=== PATIENT | female | born 1940 | race Caucasian/White ===

== ENCOUNTER 2023-01-07 10:48 | Outpatient (CLI) | payer MEDICARE, SELFPAY ==
--- NOTE | ~2023-01-07 | XR_ITS ---
Left Knee Technique: AP, lateral, and sunrise views were obtained. Clinical History: Pain Findings: No fracture or dislocation is seen. There is moderate medial joint line spurring. There is mild lateral joint line and patellofemoral compartment spurring.. Soft tissues are unremarkable. No j oint effusion is seen. 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 Reviewed, dictated and finalized at location M. 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
== END 2023-01-07 10:49 | disposition home or self-care (01) ==
LOC: CHSIMG 10:54
PROVIDERS: PCP Internal Medicine; Visit Provider Internal Medicine
DX: M25.562 Pain in left knee (principal); M17.12 Unilateral primary osteoarthritis, left knee
CPT/HCPCS: 73562

== ENCOUNTER 2024-07-25 12:55 | Emergency (ER) | payer MEDICARE, OTHER, SELFPAY ==
--- NOTE | ~2024-07-25 | XR_ITS ---
EXAMINATION: XR foot RT min 3V DATE: 07/25/2024 13:08 INDICATION: Right heel pain. TECHNIQUE: 4 views of right foot were obtained. COMPARISON: None. FINDINGS: Alignment is normal. No fracture. There is severe osteoarthritis of first metatarsophalange al joint and mild osteoarthritis of some of the interphalangeal joints. There is an enthesophyte of p osterior aspect of calcaneal tuberosity. IMPRESSION: 1. Polyarticular osteoarthritis. Reviewed, dictated and finalized at location A. ENSATION/BENEFITS SPECIALIST
[2024-07-25 12:57] VITALS: BP 155/76; PULSE 85; RESP 20; TEMP 36.8; O2SAT 95
--- NOTE | 2024-07-25 13:00 | ED.LOWEXIN ---
HPI - Extremity Injury (Lower) General Chief Complaint: Extremity Injury, Lower Stated Complaint: pain in ankle Time Seen by Provider: 07/25/24 12:58 History of Present Illness HPI Narrative: Pt presents with pain in right heel ankle for a week or so. Pt denies injury. Pt has been icing and taking nsaids without relief. Pt has no history of similar problems. Related Data Allergies Allergy/AdvReac Type Severity Reaction Status Date / Time No Known Allergies Allergy Verified 07/25/24 12:56 Review of Systems Review of Systems: All systems reviewed & are unremarkable except as noted in HPI and below PMFSH Social History Social History (System 04/17/21 @ 14:43 by Iris Barboza) Smoking status: Never smoker Exam Const: General: healthy appearing and no acute distress Nutritional Appearance: well nourished Orientation/consciousness: patient oriented x3 Limitations: no limitations Neck: Neck: normal visual inspection Resp: Effort & Inspection: normal respiratory effort Cardio: Rate: regular rate Rhythm: regular rhythm Skin: Rashes: no rashes Wounds: no wounds Neuro: General: patient oriented x3, moves all extremities and no focal motor deficits Speech: normal speech Extrem: Other: some bruising over laterla malleolus but no tenderness there. tend over lateral insertion of achilles on calcaneus Psych: Mental Status: mental status grossly normal Affect: normal affect Attitude: cooperative Course Vital Signs Vital signs: Vital Signs Temperature 98.3 F 07/25/24 12:57 Pulse Rate 85 07/25/24 12:57 Respiratory Rate 07/25/24 12:57 Blood Pressure 155/76 H 07/25/24 12:57 Pulse Oximetry 95 07/25/24 12:57 Oxygen Delivery Room Air 07/25/24 12:57 Temperature 98.3 F 07/25/24 12:57 Pulse Rate 85 07/25/24 12:57 Respiratory Rate 07/25/24 12:57 Blood Pressure 155/76 H 07/25/24 12:57 Pulse Oximetry 95 07/25/24 12:57 Oxygen Delivery Room Air 07/25/24 12:57 MDM - Extremity Injury (Lower) MDM Narrative Medical decision making narrative: pt denies injury but has pain at insertin of achilles. suspect achilles tendonitis but will check x ray to rule out fx. no fx polyarticular arthritis Discharge Plan Discharge Clinical Impression: Achilles tendinitis Patient Disposition: Home, Self-Care Condition: Stable Instructions: Antibiotic Form, Achilles Tendinitis (ED) Patient Language: South Korean Prescriptions: New naproxen [Naprosyn] 500 mg tablet 500 mg PO BID Qty: 30 0RF (DME) walking boot See Rx Instructions .Route .MEDSUPPLY Qty: 1 0RF Rx Instructions: As directed. right foot. Follow-up/Referrals: Cosme Bustillo MD [Primary Care Provider] -
[2024-07-25 14:13] VITALS: BP 126/56; PULSE 66; RESP 16; TEMP 36.9; O2SAT 97
== END 2024-07-25 14:13 | disposition home or self-care (01) ==
PROVIDERS: Emergency Provider Emergency Medicine; PCP Internal Medicine
DX: M76.61 Achilles tendinitis, right leg (principal)
CPT/HCPCS: 73630; 99283

== ENCOUNTER 2024-09-19 10:57 | Outpatient (RCR) | payer MEDICARE, OTHER, SELFPAY ==
--- NOTE | 2024-09-19 12:12 | OPREHPOC ---
Outpatient Therapy Plan of Care This is a Multidisciplinary Plan of Care that may contain components documented by all disciplines (PT, OT, and ST.) PT Problem 1 PT Problem #1 Knowledge Deficit PT Goal 1 Goal / Goal Update Independent with HEP. Target Visit 6 PT Problem 2 PT Problem #2 Pain PT Goal 1 Goal / Goal Update Pt to report no worse than 3/10 pain when ambulating or climbing stairs. Target Visit 8 PT Problem 3 PT Problem #3 Impaired Strength PT Goal 1 Goal / Goal Update Improve hip flexion strength 4+/5 bilaterally. Improve R knee extension strength to 5/5. Improve knee flexion strength to 5/5 bilaterally. Target Visit 8 PT Problem 4 PT Problem #4 Impaired Functional Mobility PT Goal 1 Goal / Goal Update Pt to ambulation 600ft in 6MWT using cane. Pt to report 20% improvement in LEFS questionnaire . Target Visit 8
--- NOTE | 2024-09-19 12:12 | PTOPEVAL1 ---
Assessment and note entered by Jonna Dang, PT Evaluation Information Assessment Status Evaluation Diagnosis Bilateral knee OA, R>L ICD-10 Condition Codes (PT) Pain in right knee M25.561,Pain in left knee M25. 562 Onset 07/13/24 Subjective Information She states that at least 50 years ago she broke her R knee cap and had it wired together. Pt reports she's had knee pain for years but overall she states her function has been relatively normal . States she has good days and bad days and she regularly takes tramadol. On her bad days her pain gets up to 7/10 and she recalls difficulty walking and having to slide her leg forward when stepping. She notes enjoying walking and gardening when it's warm outside. States she got a cortisone shot about one week ago and states it's been helping. Walking, navigating stairs, and getting out of a chair aggravate her pain. She currently ambulates with a straight cane and states she's used it for a year. She notes her left knee hurts occasionally but it' s not as severe and as often as her right knee. She also notes feeling off balance and doesn't fall often, her last fall was before . Reported Pain Level Pain Score 5: Self Report Assessment PT Clinical Summary Mrs. Valdivia is an 83 yo female presenting to physical therapy with bilateral knee pain (R>L) due to osteoarthritis. Her pain is intermittent and sharp in nature and increases when ambulating, climbing stairs, and getting out of a chair. She demonstrates impaired lower extremity strength in the R knee more than the L knee, as well as impaired R knee extension ROM. She also has a history of R patellar fracture with surgical repair and demonstrates reduced patellar glides. She will benefit from skilled physical therapy intervention to improve on these deficits to be able to perform functional activities and ADLs with less pain. Plan of Care Interventions Electrical Stimulation,Gait Training,Hot Pack/Cold Pack,Manual Therapy,Neuro Re-education,Patient/ Caregiver Education,Therapeutic Activities, Therapeutic Exercise,Self-Care/Home Management PT Services Indicated Yes Treatment Frequency and 2x/week for 8 visits Duration These treatments will address the objective and functional deficits as defined above. The patient will be advanced safely and appropriately in order for the patient to progress towards his/her prior level of function. Additional exercises will be introduced and as well as a comprehensive home exercise program upon discharge, if needed, ?to ensure carryover of functional gains achieved in the clinic. This treatment plan has been reviewed and agreement upon by the patient.
--- NOTE | 2024-10-14 14:51 | OPREHPOC ---
Outpatient Therapy Plan of Care This is a Multidisciplinary Plan of Care that may contain components documented by all disciplines (PT, OT, and ST.) PT Problem 1 PT Problem #1 Knowledge Deficit PT Goal 1 Goal / Goal Update Independent with HEP. Target Visit 6 Progress Met PT Problem 2 PT Problem #2 Pain PT Goal 1 Goal / Goal Update Pt to report no worse than 3/10 pain when ambulating or climbing stairs. Target Visit 8 Progress Met PT Problem 3 PT Problem #3 Impaired Strength PT Goal 1 Goal / Goal Update Improve hip flexion strength 4+/5 bilaterally. Improve R knee extension strength to 5/5. Improve knee flexion strength to 5/5 bilaterally. Target Visit 8 Progress Met PT Problem 4 PT Problem #4 Impaired Functional Mobility PT Goal 1 Goal / Goal Update Pt to ambulation 600ft in 6MWT using cane. -met Pt to report 20% improvement in LEFS questionnaire . -not met Target Visit 8 Progress Partially Met
--- NOTE | 2024-10-14 14:51 | PTOPDC ---
Assessment and note entered by Jonna Dang, PT Evaluation Information Assessment Status Progress Diagnosis Bilateral knee OA, R>L ICD-10 Condition Codes (PT) Pain in right knee M25.561,Pain in left knee M25. 562 Onset 07/13/24 Subjective Information Tootie Cota reports feeling 40% improved in her leg strength and balance. Her pain is still the same as before therapy but it doesn't interfere as much with walking, climbing stairs, and getting out of a chair. Reported Pain Level Pain Score 2: Self Report Pain Score 2: Self Report Assessment PT Clinical Summary Mrs. Valdivia has attended 8 total skilled physical therapy visits for R knee pain. Since beginning therapy she has made good improvements in her lower extremity strength, balance, and ambulation. Her pain is still the same as when she started therapy but she feels prepared to manage it on her own with her HEP. She has met or partially met all therapeutic goals set for her and therefore skilled physical therapy intervention is no longer indicated. Plan of Care PT Services Indicated Yes
== END 2024-10-14 15:39 | disposition home or self-care (01) ==
LOC: CHSPT 10:57
PROVIDERS: PCP Internal Medicine; Visit Provider Internal Medicine
DX: M17.0 Bilateral primary osteoarthritis of knee (principal)
CPT/HCPCS: 97110; 97112; 97140; 97161; 97530

== ENCOUNTER 2025-02-04 16:11 | Emergency (ER) | payer MEDICARE, OTHER, SELFPAY ==
[2025-02-04] VITALS (15 sets, daily range): BP systolic 116–135; BP diastolic 66–82; PULSE 84–94; RESP 18–20; TEMP 37.1; O2SAT 91–98
--- OUTSIDE RECORDS SUMMARY | 2025-02-04 16:13 | XMS_ITS | Encounter Summary ---
Author Organization [facility] Address [address] [place] [address] Care Team Providers Care Monologist Name Role Phone Unavailable Primary Care Provider Unavailabl e Encounter Details Date Type Department Care Team (Late st Contact Info) Description 04/20/2024 Lab Requisition [facility] - DermPath Lab [address] [place] [id number] Darell Davis MD [address] [place] [address] Social History Tobacco Use Types Packs/Day Years Used Date Smoking Tobacco: Never Assessed Comments Unknown Sex and Gender Information Value Date Recorded Sex Assigned at Not on file Legal Sex Female 4:49 PM CDT Gender Identity Not on file Sexual Orientation Not on file documented as of this encounter Plan of Treatment Not on file documented as of this encounter Procedures Procedure Name Priority Date/Time Associated Diagnosis Comments DERMATOPATHOLOGY Routine 04/19/2024 12:0 0 AM CDT documented in this encounter Results * DERMATOPATHOLOGY (04/19/2024 12:00 AM CDT) Case Report Dermatopathology Report Case: [id number] Authorizing Provider: Darell Davis MD Collected: 04/19/2024 12:00 AM Ordering Location: [facility] - Received: 04/21/2024 07:06 AM DermPath Lab Pathologist: Mariela Richter MD Specimen: Skin, right medial lower leg 3:26 PM CDT DERMATOPATHOLOGY LABORATORY Final Diagnosis Specimen A. SKIN, right medial lower leg: POROKERATOSIS, FEATURES MOST CONSISTENT WITH (Q82.8) 3:26 PM CDT DERMATOPATHOLOGY LABORATORY at 1526 CDT Clinical History R/o neoplasm 3:26 PM CDT DERMATOPATHOLOGY LABORATORY Gross Description Specimen A: Received is one formalin filled container labeled with the patient's name and designated right medial lower leg. The specimen consists of a shave biopsy measuring 90j12p2 mm. Jar 0. 3:26 PM CDT DERMATOPATHOLOGY LABORATORY Microscopic Description Specimen A. SKIN, right medial lower leg: There is a sparse to moderately dense lichenoid lymphohistiocytic infiltrate, a thinned epidermis, and cornoid lamella formation in one portion of the specmien. 3:26 PM CDT DERMATOPATHOLOGY LABORATORY Disclaimer An external and internal positive and negative controls are appropriate for the histochemical, immunohistochemical and immunofluorescence stain(s) in this case (if any), except where stated explicitly. The performance characteristics of the stain(s) cited in this report were developed and its performance characteristic determined by the Dermatopathology Laboratory at [facility], directed by Dr. Kianna Garcia. These tests need not be, and therefore are not, approved by the [place] Food and Drug Administration. The tests are used for clinical purposes. Billing Codes Specimen Charges Stain Charges 52885 1 3:26 PM CDT DERMATOPATHOLOGY LABORATORY Embedded Images 3:26 PM CDT DERMATOPATHOLOGY LABORATORY Pathology/Cytolog y TISSUE SPECIMEN FROM SKIN / Unknown 04/19/2024 04/21/2024 7:06 AM CDT Darell Davis MD LAB - PATHOLOGY/CYTOLOGY ORDERAB LES Final Result DERMATOPATHOLOGY LABORATORY [facility] - Department of Dermatology [address], [address] [phone] documented in this encounter Visit Diagnoses Not on filedocumented in this encounter
--- OUTSIDE RECORDS SUMMARY | 2025-02-04 16:13 | XMS_ITS | Clinical Summary ---
Author Organization [facility] Address [address] [place] [address] Care Team Providers Care Reinforcing Steel Worker Wire Mesh Name Role Phone Cosme Bustillo MD Primary Care Provider [phone] Allergies No known active allergies Medications celecoxib (CELEBREX) 200 MG capsule Take 1 capsule (200 mg total) by mouth daily. Active atenolol (TENORMIN) 25 MG tablet Take 1 tablet (25 mg total) by mouth daily. Active atorvastatin (LIPITOR) 10 MG tablet Take 1 tablet (10 mg total) by mouth nightly at bedtime. Active DULoxetine (CYMBALTA) 60 MG capsule Take 1 capsule (60 mg total) by mouth daily. Active oxybutynin XL (DITROPAN-XL) 5 MG 24 hr tablet Take 1 tablet (5 mg total) by mouth daily. Active raloxifene (EVISTA) 60 MG tablet Take 1 tablet (60 mg total) by mouth daily. Active aspirin 81 MG chewable tablet Chew 1 tablet (81 mg total) by mouth daily. Active acetaminophen (TYLENOL) 325 MG tablet Take 2 tablets (650 mg total) by mouth every 6 (six) hours as needed for Pain. Active traMADol (ULTRAM) 50 MG tablet Take 1 tablet (50 mg total) by mouth every 6 (six) hours as needed for Pain. Active Social History Tobacco Use Types Packs/Day Years Used Date Smoking Tobacco: Never Smokeless Tobacco: Never Tobacco Cessation:Counseling Given: Not Answered Alcohol Use Standard Drinks/Week Comments Yes 0 (1 standard drink = 0.6 oz pur e alcohol) few times a month socialy Comments No Sex and Gender Information Value Date Recorded Sex Assigned at Not on file Legal Sex Female 8:56 AM CDT Gender Identity Not on file Sexual Orientation Not on file Last Filed Vital Signs Vital Sign Reading Time Taken Comments Blood Pressure 169/87 03/07/2024 11:25 AM CDT Pulse 63 03/07/2024 11:25 AM CDT Temperature 36.7 C (98 F) 03/07/2024 9:33 AM CDT Respiratory Rate 20 03/07/2024 9:33 AM CDT Oxygen Saturation 96% 03/07/2024 11:25 AM CDT Inhaled Oxygen Concentration - - Weight 68 kg (150 lb) 03/07/2024 9:33 AM CDT Height 154.9 cm (5' 1) 03/07/2024 9:33 AM CDT Body Mass Index 28.34 03/07/2024 9:33 AM CDT Plan of Treatment Health Maintenance Due Date Last Done Comments DTaP, Tdap and Td Vaccines ( 1 - Tdap) 1961 Pneumococcal Vaccine: 50+ Ye ars (1 of 1 - PCV) 1992 Zoster Vaccines (1 of 2) 1992 Annual Medicare Wellness Visit 12/05/2007 Dexa Scan (General) 12/05/2007 RSV Immunization or 60+ Years (1 - 1-dose 75+ series) 2017 COVID-19 Vaccine ( - 2023-2 5 season) 2024 Meningococcal B Vaccine Aged Out No l onger eligible based on patient's age to complete this topic Meningococcal Vaccine Aged Out No turner bonifacio eligible based on patient's age to complete this topic RSV Immunizations Under 20 Months Aged Out No longer eligible based on patient's age to complete this topic Medical Devices Implanted Type Area Watch Repair Technician Device Identifier Shelf Expiration Date Model / Serial / Lot Iol Tecnis Simplicity Dcb00 - [id number] Implanted:Qty: 1 on 03/07/2024 by Efraín Ellis MD at [facility] Lens Left: Eye [employer] [id number] 05/18/2026 KARL00 / [id number] / Tecnis 1-Piece Iol Implanted:Qty: 1 on 02/08/2024 by Efraín Ellis MD at [facility] Right: Eye [employer] 08/25/2025 / [id number] / Insurance MEDICARE [facility] [place] [id number] Care Teams Reinforcing Steel Worker Wire Mesh Relationship Specialty Start Date End Date Cosme Bustillo MD [address] [place] [id number] PCP - General INTERNAL MEDICINE 02/08/24
--- OUTSIDE RECORDS SUMMARY | 2025-02-04 16:13 | XMS_ITS | Clinical Summary ---
Author Organization [facility] Address [address] [place] [address] Care Team Providers Care Nurse Coordinator Name Role Phone Unavailable Primary Care Provider Unavailabl e Source Comments [facility],non-owned Affiliates and Associated Physician Practices is amultiple site organization consisting of ambulatory clinics and hospital sitesin [place], [place] and [place]. This disclosure is being madepursuant to the Care Everywhere program and may not contain all information available regarding this patient. Last updated 18.[facility] Social History Tobacco Use Types Packs/Day Years Used Date Smoking Tobacco: Never Assessed Comments Unknown Sex and Gender Information Value Date Recorded Sex Assigned at Not on file Legal Sex Female 4:49 PM CDT Gender Identity Not on file Sexual Orientation Not on file Plan of Treatment Health Maintenance Due Date Last Done Comments BONE DENSITY TESTING 1940 MEDICARE AWV 12 MONTHS 1940 DTAP/TDAP/TD VACCINES (1 - Tdap) 1961 PNEUMOCOCCAL VACCINE 50+ (1 of 1 - PCV) 1992 ZOSTER VACCINE (1 of 2) 1992 Respiratory Syncytial Virus (RSV) Vaccine Pt: or over 60 yrs (1 - 1-dose 75+ series) 2017 COVID-19 VACCINE ( - 2023-2 5 season) 2024 DEPRESSION SCREENING 07/13/2024 INFLUENZA VACCINE (#1) 2025 HEPATITIS B VACCINE Aged Out No longe r eligible based on patient's age to complete this topic HIB VACCINE Aged Out No longer eligi ble based on patient's age to complete this topic HPV VACCINE Aged Out No longer eligi ble based on patient's age to complete this topic MENINGOCOCCAL (Group B) VACC INE SHARED DECISION-MAKING Aged Out No longer eligibl e based on patient's age to complete this topic MENINGOCOCCAL GROUPS A/C/Y/W VACCINE Aged Out No longer eligible b ased on patient's age to complete this topic Insurance ([address] [phone] MEDICARE
--- NOTE | 2025-02-04 16:14 | ED_ITS ---
HPI - Nausea/Vomiting/Diarrhea General Chief complaint: Nausea/Vomiting/Diarrhea Stated complaint: diarrhea x 1 week Source: patient Mode of arrival: ambulatory Limitations: no limitations History of Present Illness HPI Narrative: 84-year-old female presents to the ED with a one-week history of -- loose stools. She has had diarrhea off and on but for the past 24 hours diarrhea has been persistent. She has had 3 loose stools since morning. Her stools are watery and they contain undigested food. No blood or mucus noted. No abdominal pain. No nausea/ vomiting. No fever. No recent antibiotics. She has had appendectomy and C-sections many years ago. She has had a colonoscopy many years ago which has been unremarkable. patient has been putting out urine. MD elicited complaint: diarrhea Onset (ago): week(s) ( One week) Description of diarrhea: watery Associated nausea: No Associated abdominal pain: No Location of pain: none Exacerbating factors: none Relieving factors: none Associated symptoms: denies other symptoms Related Data Allergies Allergy/AdvReac Type Severity Reaction Status Date / Time No Known Allergies Allergy Verified 07/25/24 12:56 Review of Systems 2 Review of Systems: All systems reviewed & are unremarkable except as noted in HPI and below Constitutional: Constitutional: Reports as per HPI and Reports no additional constitutional complaints Eyes: Eyes: Reports as per HPI and Reports no additional eye complaints ENT: Reports system reviewed and no additional complaints, except as documented and Reports as per HPI Cardiovascular: Cardiovascular: Reports as per HPI and Reports no additional cardiovascular complaints Respiratory: Respiratory: Reports as per HPI and Reports no additional respiratory complaints Gastrointestinal: Gastrointestinal: Reports as per HPI, Reports no additional gastrointestinal complaints and Reports diarrhea Genitourinary: Genitourinary: Reports no additional female genitourinary complaints and Reports as per HPI Musculoskeletal: Musculoskeletal: Reports no additional musculoskeletal complaints and Reports as per HPI Integumentary/Breasts: Comments: erythematous rash in the front of her chest which is seasonal and non itchy Neurologic: Reports system reviewed and no additional complaints, except as documented and Reports as per HPI Psychiatric: Psychiatric: Reports no additional psychiatric complaints and Reports as per HPI Endocrine: Endocrine: Reports no additional endocrine complaints and Reports as per HPI Hematologic/Lymphatic: Hematologic/Lymphatic: Reports no additional hematologic/lymphatic complaints and Reports as per HPI Allergic/Immunologic: Allergic/Immunologic: Reports no additional allergic/immunologic complaints and Reports as per [facility] Social History Social History Smoking status: Never smoker Exam 2 Narrative: vitals are stable Const: General: no acute distress Orientation/consciousness: patient oriented x3 Limitations: no limitations HENMT: Head: normal to inspection Ears: external ears normal F raquel/Nose/Sinus: Normal external nose present Face and sinus: normal facial exam Mouth: Yes Normal oral and palatal mucosa present Throat: posterior oropharynx normal Eyes: Conjunctivae: conjunctivae normal Cornea: corneas normal Pupils: E qual, round and reactive pupils present EOM: EOMs intact bilaterally D irect Ophthalmoscopy: no photophobia Neck: Neck: normal visual inspection, no lymphadenopathy and no meningeal signs Chest: Chest palpation & inspection: normal inspection of the chest Resp: Effort & Inspection: normal respiratory effort Auscultation: clear to auscultation bilaterally Cardio: Rate: regular rate Rhythm: regular rhythm GI: GI Palp: Yes Soft to palpation Auscultation: normal bowel sounds O ther: no tenderness/rigidity / rebound. : General: Yes no CVA tenderness Back/Spine/Pelvis: Back: no CVA tenderness Skin: General skin exam: normal color Rashes: no rashes Wounds: no wounds Neuro: General: patient oriented x3, moves all extremities, no meningeal signs, no focal motor deficits and CN's II-XI intact bilaterally Cranial nerves: Yes Nystagmus not present Speech: normal speech Extrem: General: normal to inspection and no clubbing, cyanosis or edema Psych: Mental Status: mental status grossly normal Affect: normal affect Attitude: cooperative Course Course Emergency Course: Diarrhea-- No nausea vomiting/ abdominal pain. No fever. White count 14.8. Normal lactate. Normal LFTs and lipase. Stool for C diff was noted to be negative. Abdominal examination does not show any evidence of acute abdomen. Will have the patient follow-up with primary care physician. Vital Signs Vital signs: Vital Signs Temperature 37.1 C 02/04/25 16:15 Pulse Rate 94 02/04/25 16:15 Respiratory Rate 20 02/04/25 16:15 Blood Pressure 135/82 02/04/25 16:15 Pulse Oximetry 98 02/04/25 16:15 Oxygen Delivery Room Air 02/04/25 16:15 Temperature 37.1 C 02/04/25 16:15 Pulse Rate 84 02/04/25 17:16 Respiratory Rate 18 02/04/25 17:16 Blood Pressure 131/66 02/04/25 17:16 Pulse Oximetry 93 02/04/25 17:16 Oxygen Delivery Room Air 02/04/25 17:16 MDM - Nausea/Vomiting/Diarrhea MDM Narrative Medical decision making narrative: Diarrhea CKD Differential Diagnosis Differential diagnosis: Likely traveler's diarrhea and food poisoning Medical Records Attestation: I reviewed the patient's medical records. Lab Data Attestation: I reviewed the patient's lab results. 02/04/25 16:44 02/04/25 16:44 Labs: Lab Results 02/04/25 Range/Units 16:44 WBC 14.8 H (4.8-10.8) K/mm3 RBC 4.83 (4.20-5.40) M/mm3 Hgb 15.3 H (11.7-13.8) g/dL Hct 45.2 H (35.0-42.0) % MCV 93.6 (78.0-102.0) fL MCH 31.7 H (27.0-31.0) pg MCHC 33.8 (32-36) g/dL RDW 12.9 (11.6-14.4) % Plt Count 175 (150-420) K/mm3 MPV 11.1 (9.2-11.8) fl Immature Gran % (Auto) 0.3 H (0.0-0.0) % Neut % (Auto) 88.0 H (50.0-70.0) % Lymph % (Auto) 7.0 L (18.0-42.0) % [place] % (Auto) 3.6 (2.0-11.0) % Eos % (Auto) 0.9 L (1.0-6.0) % Baso % (Auto) 0.2 (0.0-1.0) % Lymph # (Auto) 1.04 L (1.10-4.50) K/mm3 [place] # (Auto) 0.53 (0.10-0.90) K/mm3 Eos # (Auto) 0.13 (0.02-0.50) K/mm3 Baso # (Auto) 0.03 (0.00-0.10) K/mm3 Abs Immat Gran (auto) 0.05 H (0.00-0.00) K/mm3 Absolute Neuts (auto) 13.04 H (1.70-7.20) K/mm3 Absolute Nucleated RBC 0.00 (0.00-0.00) K/mm3 Nucleated RBC % 0.0 (0-0.0) % PT 11.4 (9.50-12.1) Seconds INR 1.0 Sodium 140 (137-145) mmol/L Potassium 4.4 (3.4-5.0) mmol/L Chloride 113 H (98-107) mmol/L Carbon Dioxide 21 L (22-30) mmol/L Anion Gap 6 (4-12) mmol/L BUN 19 H (7-17) mg/dL Creatinine 1.11 H (0.7-1.0) mg/dL Estim Creat Clear Calc 30 ml/min Estimated GFR 47 L (59 - ) Glucose 130 H (65-110) mg/dL Calculated Osmolality 294 (285-295) mOsm/kg Lactic Acid 0.9 (0.4-2.0) mmol/L Calcium 8.7 (8.4-10.2) mg/dL Total Bilirubin 1.5 H (0.2-1.3) mg/dL AST 23 (14-36) U/L ALT 17 (6-35) U/L Alkaline Phosphatase 70 (38-126) U/L Total Protein 6.4 (6.3-8.2) g/dL Albumin 3.6 (3.5-5.1) g/dL Lipase 36 (23-300) U/L TSH 2.080 (0.465-4.680) uIU/mL C. difficile (PCR) Negative (NEGATIVE) Discharge Plan Discharge Clinical Impression: Diarrhea Qualifiers: Diarrhea type: unspecified type Qualified Code(s): R19.7 - Diarrhea, unspecified Patient Disposition: Home Condition: Stable Instructions: Antibiotic Form, Enteritis (ED) Patient Language: Afghan Prescriptions: No Action naproxen [Naprosyn] 500 mg tablet 500 mg PO BID Qty: 30 0RF (DME) walking boot See Rx Instructions .Route .MEDSUPPLY Qty: 1 0RF Rx Instructions: As directed. right foot. Follow-up/Referrals: Cosme Bustillo MD [Primary Care Provider] - Time of Disposition: 18:01
[2025-02-04 16:49] LABS: Hematocrit 45.2 % (35.0-42.0); Hemoglobin 15.3 g/dL (11.7-13.8); Immature Granulocyte Percent A 0.3 % (0.0-0.0); Lymphocytes Absolute Auto 1.04 K/mm3 (1.10-4.50); Mean Corpuscular HGB Conc 33.8 g/dL (32-36); Mean Corpuscular Hemoglobin 31.7 pg (27.0-31.0); Mean Corpuscular Volume 93.6 fL (78.0-102.0); Nucleated Red Blood Cells Absolute Auto 0.00 K/mm3 (0.00-0.00); Nucleated Red Blood Cells Perc 0.0 % (0-0.0); Platelet Count Result 175 K/mm3 (150-420); Red Blood Count 4.83 M/mm3 (4.20-5.40); White Blood Count 14.8 K/mm3 (4.8-10.8)
--- OUTSIDE RECORDS SUMMARY | 2025-02-04 16:50 | XMS_ITS | Clinical Summary ---
Author Organization [facility] Address [address] [place] [address] Care Team Providers Care Explosive Operator Bomb Name Role Phone Cosme Bustillo MD Primary Care Provider [phone] Allergies No known active allergies Medications celecoxib [...] this topic Medical Devices Implanted Type Area Risk Control Manager Device Identifier Shelf Expiration Date Model / Serial / Lot Iol Tecnis Simplicity Dcb00 - [id number] Implanted:Qty: 1 on 03/07/2024 by Efraín Ellis MD at [facility] Lens Left: Eye [employer] [id number] 05/18/2026 KARL00 / [id number] / Tecnis 1-Piece Iol Implanted:Qty: 1 on 02/08/2024 by Efraín Ellis MD at [facility] Right: Eye [employer] 08/25/2025 / [id number] / Insurance MEDICARE [facility] IBIS JULIO [id number] Care Teams Explosive Operator Bomb Relationship Specialty Start Date End Date Cosme Bustillo MD [address] [place] [id number] PCP - General INTERNAL MEDICINE 02/08/24
--- OUTSIDE RECORDS SUMMARY | 2025-02-04 16:50 | XMS_ITS | Clinical Summary ---
Author Organization [facility] Address [address] [place] [address] Care Team Providers Care School Aide Name Role Phone Unavailable Primary Care Provider Unavailabl e Source Comments [facility],non-owned Affiliates and Associated Physician Practices is amultiple site organization consisting of ambulatory clinics and hospital sitesin [place]. This disclosure is being madepursuant to the Care Everywhere program and may not contain all information available regarding this patient. Last updated 18.[facility] Social History Tobacco Use Types Packs/Day Years [...] patient's age to complete this topic Insurance ([address] [phone] MEDICARE
--- OUTSIDE RECORDS SUMMARY | 2025-02-04 16:50 | XMS_ITS | Encounter Summary ---
Author Organization [facility] Address [address] [place] [address] Care Team Providers Care Accounts Receivable Executive Name Role Phone Unavailable Primary Care Provider Unavailabl e Encounter Details Date Type Department Care Team (Late st Contact Info) Description 04/20/2024 Lab Requisition [facility] - DermPath Lab [address] [place] [phone] Darell Davis MD [address] [place] [address] Social History Tobacco Use Types [...] AM CDT) Case Report Dermatopathology Report Case: [id number] Authorizing Provider: Darell Davis MD Collected: 04/19/2024 12:00 AM Ordering Location: [facility] - Received: 04/21/2024 07:06 AM DermPath [...] specimen consists of a shave biopsy measuring [id number] mm. Jar 0. 3:26 PM CDT DERMATOPATHOLOGY [...] characteristic determined by the Dermatopathology Laboratory at [facility], directed by Dr. Kianna Garcia. These tests need not be, and therefore are not, approved by the [place] Food and Drug Administration. The tests are used for clinical purposes. Billing Codes Specimen Charges Stain Charges 51472 1 3:26 PM CDT DERMATOPATHOLOGY LABORATORY Embedded Images 3:26 PM CDT DERMATOPATHOLOGY LABORATORY Pathology/Cytolog y TISSUE SPECIMEN FROM SKIN / Unknown 04/19/2024 04/21/2024 7:06 AM CDT Darell Davis MD LAB - PATHOLOGY/CYTOLOGY ORDERAB LES Final Result DERMATOPATHOLOGY LABORATORY [facility] - Department of Dermatology [address] [phone] documented in this encounter Visit Diagnoses Not on filedocumented in this encounter
[2025-02-04 17:03] LABS: Alanine Aminotransferase 17 U/L (6-35); Albumin Level 3.6 g/dL (3.5-5.1); Alkaline Phosphatase 70 U/L (38-126); Anion Gap 6 mmol/L (4-12); Aspartate Amino Transferase 23 U/L (14-36); Bilirubin,Total 1.5 mg/dL (0.2-1.3); Blood Urea Nitrogen 19 mg/dL (7-17); Calcium 8.7 mg/dL (8.4-10.2); Carbon Dioxide 21 mmol/L (22-30); Chloride 113 mmol/L (98-107); Estimated CRCL calculation 30 ml/min; Estimated Glomerular Filt Rate 47; Glucose 130 mg/dL (65-110); Lipase 36 U/L (23-300); Osmolality Calculated 294 mOsm/kg (285-295); Potassium 4.4 mmol/L (3.4-5.0); Sodium 140 mmol/L (137-145); Total Protein 6.4 g/dL (6.3-8.2)
[2025-02-04 17:07] LABS: INR 1.0; Prothrombin Time 11.4 Seconds (9.50-12.1)
[2025-02-04 17:34] LABS: Thyroid Stimulating Hormone 2.080 uIU/mL (0.465-4.680)
[2025-02-04 17:43] LABS: Toxigenic C. Diff NEGATIVE (NEGATIVE)
== END 2025-02-04 18:16 | disposition home or self-care (01) ==
PROVIDERS: Emergency Provider Internal Medicine Critical Care Medicine; PCP Internal Medicine
DX: R19.7 Diarrhea, unspecified (principal); Z98.890 Other specified postprocedural states
CPT/HCPCS: 36415; 80053; 83605; 83690; 84443; 85025; 85610; 87493; 99283

== ENCOUNTER 2025-03-06 11:35 | Outpatient (CLI) | payer MEDICARE, OTHER, SELFPAY ==
--- NOTE | ~2025-03-06 | US_ITS ---
EXAMINATION:US venous doppler LE BI INDICATION:Left pedal edema TECHNIQUE: Multiple grayscale, color flow and Doppler images of the bilateral lower extremity deep venous systems were obtained and reviewed. COMPARISON:No prior studies for comparison. FINDINGS: The common femoral, superficial femoral and popliteal veins demonstrate normal respiratory variation, augmentation and compressibility. Color flow is also seen within the posterior tibial, peroneal, greater saphenous and profunda veins. There are bilateral cysts in the popliteal fossa. Reflux noted in the right popliteal vein. IMPRESSION: 1: No lower extremity deep venous thrombosis. Reviewed, dictated and finalized at location O.
--- OUTSIDE RECORDS SUMMARY | 2025-03-06 12:12 | XMS_ITS | Encounter Summary ---
Author Organization [facility] Address [address] [place] [address] Care Team Providers Care Manager Business Operations Name Role Phone Unavailable Primary Care Provider Unavailabl e Encounter Details Date Type Department Care Team (Late st Contact Info) Description 04/20/2024 Lab Requisition [facility] - DermPath Lab [address] [place] [phone] Darell Davis MD [address] [place] [address] Social History Tobacco Use Types [...] AM CDT) Case Report Dermatopathology Report Case: [id number] Authorizing Provider: Darell Davis MD Collected: 04/19/2024 12:00 AM Ordering Location: [facility]ician [facility] - Received: 04/21/2024 07:06 AM [...] specimen consists of a shave biopsy measuring [id number] mm. Jar 0. 3:26 PM CDT DERMATOPATHOLOGY [...] characteristic determined by the Dermatopathology Laboratory at [facility], directed by Dr. Kianna Garcia. These tests need not be, and therefore are not, approved by the [place] Food and Drug Administration. The tests are used for clinical purposes. Billing Codes Specimen Charges Stain Charges 39287 1 3:26 PM CDT DERMATOPATHOLOGY LABORATORY Embedded Images 3:26 PM CDT DERMATOPATHOLOGY LABORATORY Pathology/Cytolog y TISSUE SPECIMEN FROM SKIN / Unknown 04/19/2024 04/21/2024 7:06 AM CDT Darell Davis MD LAB - PATHOLOGY/CYTOLOGY ORDERAB LES Final Result DERMATOPATHOLOGY LABORATORY [facility] - Department of Dermatology [address] [phone] documented in this encounter Visit Diagnoses Not on filedocumented in this encounter
--- OUTSIDE RECORDS SUMMARY | 2025-03-06 12:12 | XMS_ITS | Clinical Summary ---
Author Organization [facility] Address [address] [place] [address] Care Team Providers Care Neurology Manager Name Role Phone Unavailable Primary Care Provider Unavailabl e Source Comments [facility],non-owned Affiliates and Associated Physician Practices is amultiple site organization consisting of ambulatory clinics and hospital sitesin [place], [place], [place] and [place]. This disclosure is being madepursuant to the Care Everywhere program and may not contain all information available regarding this patient. Last updated 18.[facility] Social History Tobacco Use Types Packs/Day Years [...] patient's age to complete this topic Insurance ([address] [phone] MEDICARE
--- OUTSIDE RECORDS SUMMARY | 2025-03-06 12:12 | XMS_ITS | Clinical Summary ---
Author Organization [facility] Address [address] [place] [address] Care Team Providers Care Singe Winder Name Role Phone Cosme Bustillo MD Primary Care Provider [phone] Allergies No known active allergies Medications celecoxib [...] this topic Medical Devices Implanted Type Area Web Development Instructor Device Identifier Shelf Expiration Date Model / Serial / Lot Iol Tecnis Simplicity Dcb00 - [id number] Implanted:Qty: 1 on 03/07/2024 by Efraín Ellis MD at [facility] Lens Left: Eye [employer] [id number] 05/18/2026 KARL00 / [id number] / Tecnis 1-Piece Iol Implanted:Qty: 1 on 02/08/2024 by Efraín Ellis MD at [facility] Right: Eye [employer] 08/25/2025 / [id number] / Insurance MEDICARE [facility] IB[place]UL[place] [id number] Care Teams Singe Winder Relationship Specialty Start Date End Date Cosme Bustillo MD [address] [place] [phone] PCP - General INTERNAL MEDICINE 02/08/24
== END 2025-03-06 11:36 | disposition home or self-care (01) ==
LOC: CHSIMG 11:37
PROVIDERS: PCP Internal Medicine; Visit Provider Internal Medicine
DX: R60.9 Edema, unspecified (principal)
CPT/HCPCS: 93970